=== PATIENT | female | born 1935 | race Caucasian/White ===

== ENCOUNTER 2017-05-18 11:00 | Inpatient (IN) | payer OTHER ==
[~2017-05-18] VITALS: Ht 149.9 cm; Wt 59.0 kg
[2017-05-18] MEDS ORDERED: GLIPIZIDE5 MG PO (14:01)
[2017-05-18] MEDS ORDERED: LEVO-T75 MCG PO (14:01)
[2017-05-18] MEDS ORDERED: AVAPRO300 MG PO (14:01)
[2017-05-18] MEDS ORDERED: DILTIAZEM ER60 MG PO (14:02)
[2017-05-18] MEDS ORDERED: CLONAZEPAM1 MG PO (14:04)
[2017-05-18] MEDS ORDERED: LIPITOR20 MG PO (14:04)
[2017-05-18] MEDS ORDERED: MONTELUKAST SOD10 MG PO (14:04)
[2017-05-26] MEDS ORDERED: AMOX-CLAV 875-1 EACH PO (13:23)
[2017-05-26] MEDS ORDERED: DOCUSATE SODIU100 MG PO (13:23)
[2017-05-26] MEDS ORDERED: GABAPENTIN800 MG PO (13:23)
[2017-05-26] MEDS ORDERED: CLONAZEPAM1 MG PO (13:23)
[2017-05-26] MEDS ORDERED: PERCOCET 5-3251 EACH PO (13:23)
== END 2017-05-26 15:50 | disposition home or self-care (01) | DRG 460 ==
LOC: O/R 05-25 05:00 → PED 05-25 05:00 → SURH 05-25 09:30 → PED 05-25 13:02
PROVIDERS: Orthopaedic Surgery Orthopaedic Surgery of the Spine
PROC: 0SG00AJ Fusion of Lumbar Vertebral Joint with Interbody Fusion Device, Posterior Approach, Anterior Column, Open Approach (ICD-10-PCS; 2017-05-25)
PROC: 0ST20ZZ Resection of Lumbar Vertebral Disc, Open Approach (ICD-10-PCS; 2017-05-25)
PROC: 07DS3ZZ Extraction of Vertebral Bone Marrow, Percutaneous Approach (ICD-10-PCS; 2017-05-25)
PROC: 0SG00A0 Fusion of Lumbar Vertebral Joint with Interbody Fusion Device, Anterior Approach, Anterior Column, Open Approach (ICD-10-PCS; principal; 2017-05-25 09:30)
DX: M48.061 Spinal stenosis, lumbar region without neurogenic claudication (principal); M96.1 Postlaminectomy syndrome, not elsewhere classified; M43.16 Spondylolisthesis, lumbar region; I10 Essential (primary) hypertension; E03.8 Other specified hypothyroidism; E11.9 Type 2 diabetes mellitus without complications